=== PATIENT | male | born 1945 | race Caucasian/White ===

== ENCOUNTER 2017-03-22 09:28 | Emergency (ER) | payer MEDICARE ==
--- NOTE | 2017-03-22 09:45 | ERNOTE ---
Medical Problem HPI - Narrative Date of Service: 03/22/17 - General Chief Complaint: General Assessment Time Seen by Provider: 03/22/17 09:30 Source: patient, family, RN notes reviewed Exam Limitations: no limitations - Immun/Allergies/Home Medications Allergies/Adverse Reactions: Allergies Penicillins Allergy (Verified 03/22/17 09:46) Hives Home Medications: HOME MEDICATIONS Aspirin [Aspirin Chewable] 81 mg PO DAILY 07/28/14 [Last Taken Unknown] Enalapril Maleate [Vasotec] 2.5 mg PO DAILY 07/28/14 [Last Taken Unknown] Insulin Glargine,Hum.rec.anlog [Lantus] 100 unit SQ 07/28/14 [Last Taken Unknown ] Insulin NPH Human Isophane [Humulin N] 07/28/14 [Last Taken Unknown] Omeprazole [Prilosec] 40 mg PO DAILY 07/28/14 [Last Taken Unknown] Clopidogrel Bisulfate [Plavix] 75 mg PO DAILY 04/08/15 [Last Taken Unknown] Levothyroxine Sodium [Synthroid] 25 mcg PO DAILY 04/08/15 [Last Taken Unknown] Simvastatin [Zocor] 40 mg PO HS 04/08/15 [Last Taken Unknown] Multivitamin [One Daily Essential] 1 each PO DAILY 07/08/16 [Last Taken Unknown] Nitroglycerin [Nitrostat] 0.4 mg SL Q5MIN PRN 03/22/17 [Last Taken Unknown] - History of Present History Narrative: pt has been having gneralized malaise for the last couple of days. No real energy. Doesn't feel hungry. He apparently had BS of 300+ this am. Got 15 units of insulin then got hot and sweaty. Had a mild cough and sinus pressure. No recent sick contacts that he is aware of Timing: constant Severity: moderate Modifying Factors - (Improves): Present: other - none Review of Systems - Narrative Narrative: see HPI - Review of Systems Constitutional: Present: See HPI, fever, fatigue, malaise EYE: Present: other - baseline totally blind ENT: Present: See HPI, nose congestion, other - facial "fullness" and congestion "like a sinus infection". Absent: ear discharge, nose pain, sore throat, throat swelling Respiratory: Present: cough Cardiology: Present: other - mild discomfort with cough which is infrequent. No resting chest pain. Absent: palpitations, syncope Gastrointestinal/Abdominal: Present: eating less. Absent: nausea, vomiting, diarrhea, constipation, abdominal pain Genitourinary: Present: no symptoms reported Musculoskeletal: Present: muscle pain, other - generalized myalgias Skin: Present: no symptoms reported Neurological: Present: no symptoms reported Endocrine: Present: other - increased blood sugar Hematologic/Lymphatic: Present: no symptoms reported Psych: Present: no symptoms reported All Other Systems: All systems neg except as marked - Patient's Past Medical History Patient History - Medical: Diabetes Type 1, GERD, Hypothyroidism, Renal Disease Patient History - Cardiac/Respiratory: Coronary Heart Disease, Hypertension, Hyperlipidemia, Myocardial Infarction, Other - PVD Patient History - Cancer: No Hx of Cancer Patient History - Surgical Procedures: Coronary Bypass Surgery, Cardiac stent, Other Patient History - Other: None - Family History Mother Family History - Medical: Father Family History - Medical: - Social History Living Situations: home Abuse History: No History of abuse Psych History: No pertinent hx Alcohol Use: none Physical Exam - Physical Exam Narrative: Well developed well nourished gentleman sitting in wheelchair in no apparent distress General Appearance: Present: wd/wn, alert, no apparent distress Ears, Nose, Throat: Present: normal ENT inspection, normal pharynx. Absent: pharyngeal erythema, tonsillar swelling, dry mucous membranes Neck: Present: normal inspection, nontender, full range of motion Respiratory: Present: no respiratory distress, normal breath sounds, no accessory muscle use, chest nontender, lungs clear. Absent: chest tenderness, crackles, rales, rhonchi, wheezing Cardiovascular/Chest: Present: regular rate, rhythm, no murmur. Absent: tachycardia, bradycardia, gallop/S3, gallop/S4 Gastrointestinal/Abdominal: Present: normal bowel sounds, nontender, nondistended, soft Rectal Exam: Present: deferred Male Genitals Exam: Present: deferred Back Exam: Present: normal inspection, normal range of motion, no CVA tenderness , no vertebral tenderness Extremity Exam: Present: normal inspection, non-tender, normal range of motion, no edema. Absent: decreased range of motion, calf tenderness Neurological Exam: Present: alert, oriented, normal mood/affect, no motor/ sensory deficits, mangle tender cloth II-XII nml as tested Skin Exam: Present: normal color, warm/dry. Absent: skin rash Lymphatic Exam: Present: no adenopathy ED Progress - EKG EKG: NSR - first degree AVB with LA 254. borderline ST sdepression in I. Essentially unchanged from prior dated 07/08/16 EKG read: Interp. by me EKG Comments: Compared to prior 07/08/16 Plan - Plan Plan: Patient says that he is not able to urinate because he hasn't had 3-4 cups of coffee. He has no symptoms of urinary tract infection. i discussed with him the fact that either he will continue to worsen and new symptoms will develop. if this happens he should return. Otherwise he will start to get better and will likely be symptoms free in a couple of days. Will follow up with primray care doctor. Return for new or worrisome symptoms. Departure - Departure Clinical Impression: Malaise and fatigue Disposition: Home self-care Condition: Stable Instructions: Hyperglycemia, [id number] Additional Instructions: Return for new or worrisome symptoms. Follow up with primary care doctor. call for an appointment.
[2017-03-22 09:56] LABS: Hematocrit 34.8 % (42.0-52.0); Mean Cell Volume 90.4 fl (78-100); Mean Corpuscular Hemoglobin 31.2 pg (27-31); Mean Corpuscular Hgb Conc 34.5 g/dl (32-36); Mean Platelet Volume 11.6 fl (6.0-9.5); Neutrophil # 6.2 K/mm3 (1.3-6.0); Neutrophil % 86.3 % (42-75.0); Platelet Count 153 K/mm3 (150-450); Red Blood Count 3.85 M/mm3 (4.7-6.0); Red Cell Distribution Width 13.9 % (11.5-14.0); White Blood Count 7.2 K/mm3 (4.0-10.5)
[2017-03-22 10:13] LABS: Albumin * 3.2 gm/dl (3.4-5.0); BUN/Creatinine Ratio 18.1 (9.0-21.6); Bilirubin, Total 0.7 mg/dL (0.0-1.1); Ca. Corrected For Albumin 9.1 mg/dL (8.4-10.2); Calcium * 8.8 mg/dL (7.9-10.9); Carbon Dioxide 27.6 mmol/L (24-32.6); Potassium 4.6 mmol/L (3.4-4.6); Total Protein 6.6 gm/dL (6.2-8.2)
[2017-03-22 10:14] LABS: Troponin I 0.026 ng/ml (0.00-0.10)
[2017-03-22 11:24] VITALS: BP 124/51
== END 2017-03-22 11:25 | disposition home or self-care (01) ==
LOC: ER 09:28
DX: R53.81 Other malaise (principal); R53.83 Other fatigue; E03.9 Hypothyroidism, unspecified; K21.9 Gastro-esophageal reflux disease without esophagitis; I50.9 Heart failure, unspecified; I10 Essential (primary) hypertension; E78.5 Hyperlipidemia, unspecified

== ENCOUNTER 2017-04-16 19:01 | Emergency (ER) | payer MEDICARE ==
--- NOTE | 2017-04-16 20:03 | ERNOTE ---
<LindseyToym - Last Filed: 04/16/17 19:52> Neuro HPI ER Record Date of Service: 04/16/17 Presenting Symptoms: other - trouble with speech Time Seen by Provider: 04/16/17 19:52 Source: patient, family Exam Limitations: no limitations Immunizations: IMMUNIZATION HX Immunizations Up to Date Yes: Unknown History of Influenza Vaccine No Hx Pneumococcal Vaccination No Allergies/Adverse Reactions: Allergies Allergy/AdvReac Type Severity Reaction Status Date / Time Penicillins Allergy Hives Verified 03/22/17 09:46 Home Medications: HOME MEDICATIONS Enalapril Maleate [Vasotec] 2.5 mg PO DAILY 07/28/14 [Last Taken Unknown] Insulin Glargine,Hum.rec.anlog [Lantus] 100 unit SQ 07/28/14 [Last Taken Unknown ] Insulin NPH Human Isophane [Humulin N] 15 units SC DAILY 07/28/14 [Last Taken Unknown] Omeprazole [Prilosec] 20 mg PO DAILY 07/28/14 [Last Taken Unknown] Clopidogrel Bisulfate [Plavix] 75 mg PO DAILY 04/08/15 [Last Taken Unknown] Levothyroxine Sodium [Synthroid] 25 mcg PO DAILY 04/08/15 [Last Taken Unknown] Simvastatin [Zocor] 40 mg PO HS 04/08/15 [Last Taken Unknown] Multivitamin [One Daily Essential] 1 each PO DAILY 07/08/16 [Last Taken Unknown] Nitroglycerin [Nitrostat] 0.4 mg SL Q5MIN PRN 03/22/17 [Last Taken Unknown] Ferrous Sulfate [Iron] 325 mg PO DAILY 04/16/17 [Last Taken Unknown] Insulin Regular, Human [Humulin R] unit SC TIDWM 04/16/17 [Last Taken Unknown] [place]-3 Fatty Acids/Fish Oil [Fish Oil 1,000 mg Capsule] 2 each PO 04/16/17 [ Last Taken Unknown] - History of Present Illness Narrative: Patient presents via EMS. He had low BS. Was diaphoretic and having trouble speaking. confirmed low BS and gave oral glucose however his Sx persisted. EMS called. Now he relates all his Sx have resolved and and he thinks he is back to normal. No fevers. Sinus infection 1 mo ago, no recent infections. No CP or SOB. no abdominal pain. Onset: other - Sx resovled - Character of Deficits Additional Deficits: Present: other - chronic vision changes. Associated Symptoms: Reports: altered mental status. Denies: fever/chills, chest pain Prior Treament: Reports: other - has had these Sx with low BS in the past Review of Systems - Review of Systems Constitutional: Absent: fever EYE: Present: other - chronic vision changes ENT: Absent: sore throat Respiratory: Absent: shortness of breath Cardiology: Absent: chest pain Gastrointestinal/Abdominal: Absent: abdominal pain Genitourinary: Absent: dysuria Neurological: Present: See HPI - Patient's Past Medical History Patient History - Medical: Diabetes Type 1, GERD, Hypothyroidism, Renal Disease Patient History - Cardiac/Respiratory: Coronary Heart Disease, Hypertension, Hyperlipidemia, Other Patient History - Cancer: No Hx of Cancer Patient History - Surgical Procedures: Coronary Bypass Surgery, Cardiac stent, Other Patient History - Other: None - Family History Mother Family History - Medical: Father Family History - Medical: - Social History Living Situations: spouse Abuse History: No History of abuse Psych History: No pertinent hx Smoking Status: Never smoker Alcohol Use: none Drug Use: none - Immunizations Immunizations Up to Date: Yes - Unknown Hx Pneumococcal Vaccination: No History of Influenza Vaccine: No Physical Exam - Physical Exam General Appearance: Present: alert, no apparent distress Head Exam: Present: normal inspection Eye Exam: Other: bilateral - Known visual impairment Ears, Nose, Throat: Absent: nasal congestion, pharyngeal erythema, dry mucous membranes Neck: Present: normal inspection Respiratory: Present: no respiratory distress, normal breath sounds, no accessory muscle use, lungs clear Cardiovascular/Chest: Present: regular rate, rhythm Gastrointestinal/Abdominal: Present: normal bowel sounds, nontender, soft Back Exam: Absent: CVA tenderness (R), CVA tenderness (L) Extremity Exam: Present: no edema Neurological Exam: Present: alert, normal mood/affect, no motor/sensory deficits , other - chronic vision changes. No pronator drift. No clear acute CN deficits. No extremity focal motor or sensory deficits. No clear evidence of acute stroke. Skin Exam: Present: normal color, warm/dry ED Progress - Vital Signs Patient's Vital Signs:: I have reviewed the patient's vital signs. Vital Signs: Vital Signs 04/16/17 04/16/17 19:02 19:37 Temperature 36.5 C Pulse Rate 69 67 Respiratory 14 12 Rate Blood Pressure 227/100 234/87 O2 Sat by Pulse 100 100 Oximetry - Progress/Reassessment Chief Complaint: Altered Mental Status - Transfer of Care Physician Sign Out: Tomy Portillo Receiving Physician: Jr Guevara Pending Results: Labs Additional Notes: i saw the patient just prior to the end of my shift. Labs/UA, EKG ordered. D/ W Dr Guevara and patient signed off. No evidence at this time of acute stroke. Clinically most likelysecondary to low BS that was noted at home. Departure Clinical Impression: Hypoglycemia Mental status alteration Qualifiers: Altered mental status type: disorientation Qualified Code(s): R41.0 - Disorientation, unspecified - Departure Disposition: Home Follow Up Needed Condition: Good Instructions: Confusion, Hypoglycemia, [id number] Additional Instructions: See your regular doctor within the next 1-2 weeks for further testing. Return to ER if symptoms return <Jr Guevara - Last Filed: 04/16/17 23:36> Neuro HPI ER Record Immunizations: IMMUNIZATION HX Immunizations Up to Date Yes: Unknown History of Influenza Vaccine No Hx Pneumococcal Vaccination No ED Progress - Results and Orders Patient's Lab Results:: I have reviewed the patient's lab results. Results and Orders: Laboratory Tests 04/16/17 04/16/17 04/16/17 20:07 20:07 20:19 WBC 4.8 Hgb 11.7 L Hct 34.3 L Plt Count 138 L Sodium 132 Potassium 4.5 BUN 26 H Creatinine 1.73 H Random Glucose 146 H Urine Color Yellow Urine Appearance Clear Urine pH 6.5 Ur Specific [place] <=1.005 Urine Protein Negative Urine Glucose (UA) Negative Urine Ketones Negative Urine Blood Negative Urine Nitrate Negative Urine Bilirubin Negative Urine Urobilinogen Normal Ur Leukocyte Esterase Negative Urine RBC 0-5 Urine WBC 0-5 Ur Epithelial Cells 0-5 Urine Bacteria 1+ H Hyaline Casts 0-5 H Urine Culture Comments No culture indicated - Vital Signs Vital Signs: Vital Signs 04/16/17 04/16/17 04/16/17 19:02 19:37 19:55 Temperature 36.5 C Pulse Rate 69 67 74 Respiratory 14 12 Rate Blood Pressure 227/100 234/87 O2 Sat by Pulse 100 100 Oximetry 04/16/17 04/16/1717 20:22 20:47 21:22 Temperature Pulse Rate 67 65 60 Respiratory 18 16 18 Rate Blood Pressure 232/94 224/93 216/84 O2 Sat by Pulse 99 97 98 Oximetry 04/16/17 21:47 Temperature Pulse Rate 70 Respiratory 13 Rate Blood Pressure 217/83 O2 Sat by Pulse 99 Oximetry - EKG EKG: nonspecific ST T wave changes - with 1st degree AV block - Progress/Reassessment Progress Note-Subjective: 04/16/17 21:50 Pt feels better but BP appears high systolic. Will get manual BP 04/16/17 23:00 BP in normal range when done manually. Discussed hypoglycemia vs. TIA. does not believe it could be hypoglycemia. I encouraged them to see his PCP in follow up and return to ED if symptoms return.
--- OUTSIDE RECORDS SUMMARY | 2017-04-16 20:04 | XMS REPORT | Summary of Care ---
:1945 Author Organization [facility] Address [address] [place] [address] Care Team Providers Name Role Phone Mell Staples Primary Care Physician Encounter Date(s): 04/02/17 - 04/02/17 [facility], [address] [place], [place] [address] Discharge Diagnosis: Chronic kidney disease (CKD), stage III (moderate) Discharge Diagnosis: Benign hypertension with CKD (chronic kidney disease) stage III Discharge Diagnosis: Anemia Discharge Diagnosis: Peripheral edema Discharge Diagnosis: Microalbuminuria Discharge Disposition: 01 Discharged to Home or Self Care Attending Physician: YOLIE Oliver Referring Physician: YOLIE Oliver Vital Signs Most recent to oldest [Reference Range]: 1 2 Temperature Temporal Artery [36.0-38.0 DegC] 36.3 DegC (04/02/17 10:01 AM) Peripheral Pulse Rate [60-100 bpm] 68 bpm (04/02/17 10:01 AM) Blood Pressure [90-130/60-90 mmHg] 130/70mmHg 142/68mmHg (04/02/17 10:37 AM) *HI* (04/02/17 10:01 AM) Mean Arterial Pressure, Cuff 90 mmHg 93 mmHg (04/02/17 10:37 AM) (04/02/17 10:01 AM) Most recent to oldest [Reference Range]: 1 2 Height/Length Measured 167 cm (04/02/17 10:01 AM) Weight Dosing 64.4 kg (04/02/17 10:01 AM) Weight Measured 64.4 kg (04/02/17 10:01 AM) BSA Measured 1.72 m2 (04/02/17 10:01 AM) Body Mass Index Measured 23.09 kg/m2 (04/02/17 10:01 AM) Problem List Condition Effective Dates Status Health Status Informant Anemia(Confirmed) Active CAD - Coronary artery Active disease(Confirmed) Chronic kidney disease stage Active 3(Confirmed) Herniated Disc L1(Confirmed)1 Active GERD - Gastro-esophageal reflux Active disease(Confirmed) HTN - Hypertension(Confirmed) Active Hyperkalemia(Confirmed) Active Hyperlipidemia(Confirmed) Active Hyponatremia(Confirmed) Active ITP(Confirmed) Active Pancytopenia(Confirmed) 01/31/12 Active Peripheral vascular disease(Confirmed) Active DM I [Diabetes mellitus type I] 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 [id number] by retinopathy Allergies, Adverse Reactions, Alerts Substance Reaction Severity Status penicillins Active Medications aspirin 81 mg oral tablet 1 tab(s), Oral, Daily, 0 Refill(s) Start Date: 02/04/14 Status: Orderedcefdinir 300 mg oral capsule 2 cap(s), Oral, Daily, TAKE TWO CAPSULES BY MOUTH EVERY DAY FOR 10 DAYS, X 10 days, Start Date: 03/29/17 8:00:00 CDT Special Instructions: TAKE TWO CAPSULES BY MOUTH EVERY DAY FOR 10 DAYS Start Date: 03/29/17 Stop Date: 04/07/17 Status: OrderedCialis 20 mg oral tablet 1 tab(s), Oral, Per Package Label, # 3 tab(s), 0 Refill(s), Start Date: 14:02:00 [employer], samples given to patient (Rx), [id number], 06/23/17 Start Date: 12/02/15 Stop Date: 02/08/16 Status: Completeddoxycycline 100 mg injection 100 mg, Oral, BID, # 10 cap(s), 0 Refill(s), Start Date: 10/02/16 10:11:00 [employer], Pharmacy: [facility] [place], [place] Start Date: 10/02/16 Stop Date: 01/31/17 Status: Completedenalapril 2.5 mg oral tablet 1 tab(s), Oral, Daily, 0 Refill(s) Start Date: 02/04/14 Status: Orderedferrous sulfate 325 mg (65 mg elemental iron) oral delayed release tablet 1 tab(s), Oral, 2x/Wk, take 1 tablet (325MG) by oral 2 times weekly, 0 Refill(s) , Start Date: 02/04/14 13:22:00 CDT Special Instructions: take 1 tablet (325MG) by oral 2 times weekly Start Date: 02/04/14 Status: OrderedFish Oil 1000 mg oral capsule 2 cap(s), Oral, 0 Refill(s), Start Date: 02/04/14 13:18:00 CDT Start Date: 02/04/14 Status: OrderedHumuLIN N 100 units/mL subcutaneous suspension See Instructions, inject by subcutaneous route as per insulin sliding scale protocol, 0 Refill(s) Special Instructions: inject by subcutaneous route as per insulin sliding scale protocol Start Date: 02/04/14 Status: OrderedHumuLIN R 100 units/mL injectable solution See Instructions, inject by subcutaneous route as per insulin sliding scale protocol, 0 Refill(s) Special Instructions: inject by subcutaneous route as per insulin sliding scale protocol Start Date: 02/04/14 Status: OrderedLantus 100 units/mL subcutaneous solution See Instructions, as directed per sliding scale, 0 Refill(s), Start Date: 13:05:00 CDT Special Instructions: as directed per sliding scale Start Date: 02/03/15 Status: Orderedmultivitamin Daily, take 1 capsule by oral route every day, 0 Refill(s) Special Instructions: take 1 capsule by oral route every day Start Date: 02/04/14 Status: Orderednitroglycerin 0.4 mg sublingual tablet 1 tab(s), SL, q5min, PRN for chest pain, 0 Refill(s) Start Date: 02/04/14 Stop Date: 12/02/15 Status: DiscontinuedNitrostat 0.4 mg sublingual tablet 1 tab(s), SL, q5min, PRN for chest pain, # 100 tab(s), 0 Refill(s), Start Date: 10/02/16 9:35:00 [employer] ASS[employer] Start Date: 10/02/16 Status: Orderedomeprazole See Instructions, Prilosec 20 mg Cap take 1 capsule (20MG) by ORAL route every day before a meal, 0 Refill(s) Special Instructions: Prilosec 20 mg Cap take 1 capsule (20MG) by ORAL route every day before a meal Start Date: 02/04/14 Status: OrderedPlavix 75 mg oral tablet See Instructions, take 1/2 tablet (37.5MG) by oral route every day, 0 Refill(s) Special Instructions: take 1/2 tablet (37.5MG) by oral route every day Start Date: 02/04/14 Status: Orderedsimvastatin 40 mg oral tablet See Instructions, take 1/2 tablet (40MG) by ORAL route every bedtime in the evening, 0 Refill(s) Special Instructions: take 1/2 tablet (40MG) by ORAL route every bedtime in the evening Start Date: 02/04/14 Status: OrderedSynthroid 25 mcg (0.025 mg) oral tablet 1 tab(s), Oral, Daily, # 30 tab(s), 0 Refill(s), Start Date: 07/15/15 11:51:00 CDT Start Date: 07/15/15 Status: Orderedtadalafil 20 mg oral tablet 1 tab(s), Oral, Daily, # 9 tab(s), 11 Refill(s), Start Date: 02/08/17 15:53:54 CDT, Pharmacy: [place], [place] Start Date: 02/08/17 Stop Date: 02/15/17 Status: Discontinuedtadalafil 20 mg oral tablet 1 tab(s), Oral, Daily, # 9 tab(s), 11 Refill(s), Start Date: 02/15/17 15:25:48 CDT, Pharmacy: [id number] Start Date: 02/15/17 Status: Orderedtadalafil 20 mg oral tablet 1 tab(s), Oral, Daily, # 9 tab(s), 11 Refill(s), Start Date: 12/30/15 9:32:00 CDT, Pharmacy: [place], [place] Start Date: 12/30/15 Stop Date: 02/08/17 Status: CompletedViagra 100 mg oral tablet 1 tab(s), Oral, As Indicated, PRN for erectile dysfunction, # 6 tab(s), 11 Refill(s), Start Date: 08/12/15 13:47:00 [employer] ASS[employer], [facility] [place] Start Date: 08/12/15 Stop Date: 12/02/15 Status: DiscontinuedViagra 50 mg oral tablet 1 tab(s), Oral, Daily, PRN as needed for erectile dysfunction, # 8 tab(s), 0 Refill(s), Start Date: 07/15/15 12:08:00 CDT, samples given to patient (Rx), [id number], 04/21/18 Start Date: 07/15/15 Stop Date: 12/02/15 Status: DiscontinuedZetia 10 mg oral tablet 1 tab(s), Oral, Daily, 0 Refill(s) Start Date: 02/04/14 Stop Date: 02/03/15 Status: Completed Results No data available for this section Immunizations No data available for this section Procedures Procedure Date Related Diagnosis Body Site CABG - 3V1 03/2003 Post PTCA with stents Right knee surgery - open repair Right LE JET PILOT with STENT2 1CABG [id number] LE JET PILOT with STENT Social History No data available for this section Assessment and Plan No data available for this section
--- OUTSIDE RECORDS SUMMARY | 2017-04-16 20:04 | XMS REPORT | Summary of Care ---
:1945 Author Organization [facility] Care Team Providers Name Role Phone Mell Staples Primary Care Physician Encounter Date(s): 01/31/17 - 01/31/17 [facility] [address] [place], [place] [address] Discharge Disposition: Discharged to Home or Self Care Attending Physician: Gregg Ferraro MD Admitting Physician: Gregg Ferraro MD Vital Signs No data available for this section Problem List Condition Effective Dates Status Health [...] I] 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 [id number] by retinopathy Allergies, Adverse Reactions, Alerts Substance Reaction Severity Status penicillins Active Medications aspirin 81 mg oral tablet 1 tab(s), Oral, Daily, 0 Refill(s) Start Date: 02/04/14 Status: OrderedCialis 20 mg oral tablet 1 tab(s), Oral, Per Package Label, # 3 tab(s), 0 Refill(s), Start Date: 14:02:00 [employer], samples given to patient (Rx), [id number], 06/23/17 Start Date: 12/02/15 Stop Date: 02/08/16 Status: Completeddoxycycline 100 mg injection 100 mg, Oral, BID, # 10 cap(s), 0 Refill(s), Start Date: 10/02/16 10:11:00 [employer], [facility] [place] Start Date: 10/02/16 Stop Date: 01/31/17 [...] tab(s), 0 Refill(s), Start Date: 10/02/16 9:35:00 [employer] Start Date: 10/02/16 Status: Orderedomeprazole See Instructions, [...] Refill(s), Start Date: 12/30/15 9:32:00 CDT, Pharmacy: [place], [place] Start Date: 12/30/15 Status: OrderedViagra 100 mg oral tablet 1 tab(s), Oral, As Indicated, PRN for erectile dysfunction, # 6 tab(s), 11 Refill(s), Start Date: 08/12/15 13:47:00 [employer], Pharmacy: [place], [place] Start Date: 08/12/15 Stop Date: 12/02/15 Status: DiscontinuedViagra 50 mg oral tablet 1 tab(s), Oral, Daily, PRN as needed for erectile dysfunction, # 8 tab(s), 0 Refill(s), Start Date: 07/15/15 12:08:00 CDT, samples given to patient (Rx), [id number], 04/21/18 Start Date: 07/15/15 Stop Date: 12/02/15 Status: DiscontinuedZetia 10 mg oral tablet 1 tab(s), Oral, Daily, 0 Refill(s) Start Date: 02/04/14 Stop Date: 02/03/15 Status: Completed Results Patient Viewable Results Most recent to oldest [Reference Range]: 1 WBC [4.8-10.8 thou/mm3] 4.4 thou/mm3 *LOW* (01/31/17 9:41 AM) RBC [4.60-6.00 Mil/mm3] 3.90 Mil/mm3 *LOW* (01/31/17 9:41 AM) Hgb [14.0-18.0 g/dL] 12.4 g/dL *LOW* (01/31/17 9:41 AM) Hct [42.0-52.0 %] 35.2 % *LOW* (01/31/17 9:41 AM) MCV [80.0-94.0 fL] 90.3 fL (01/31/17 9:41 AM) MCH [25.0-38.0 pg/cell] 31.8 pg/cell (01/31/17 9:41 AM) MCHC [31.0-37.0 g/dL] 35.2 g/dL (01/31/17 9:41 AM) RDW [1.0-48.0 fL] 46.9 fL (01/31/17 9:41 AM) Platelet [130-400 thou/mm3] 149 thou/mm3 (01/31/17 9:41 AM) Neutrophils % Auto [50.0-75.0 %] 68.3 % (01/31/17 9:41 AM) Immature Granulocyte Auto [0.1-2.0 %] 0.2 % (01/31/17 9:41 AM) Lymphocytes % Auto [15.0-41.0 %] 19.4 % (01/31/17 9:41 AM) Monocytes % Auto [2.0-10.0 %] 8.7 % (01/31/17 9:41 AM) Eosinophils % Auto [0.0-6.0 %] 3.2 % (01/31/17 9:41 AM) Basophil % Auto [0.0-1.0 %] 0.2 % (01/31/17 9:41 AM) Neutrophils Absolute [1.5-5.9 thou/mm3] 3.0 thou/mm3 (01/31/17 9:41 AM) Immature Gran Absolute [0.01-0.03 thou/mm3] 0.01 thou/mm3 (01/31/17 9:41 AM) Lymphocytes Absolute [1.5-4.0 thou/mm3] 0.8 thou/mm3 *LOW* (01/31/17 9:41 AM) Monocytes Absolute [0.0-0.9 thou/mm3] 0.4 thou/mm3 (01/31/17 9:41 AM) Eosinophil Absolute [0.0-0.7 thou/mm3] 0.1 thou/mm3 (01/31/17 9:41 AM) Basophil Absolute [0.0-0.2 thou/mm3] 0.0 thou/mm3 (01/31/17 9:41 AM) Immunizations No data available for this section Procedures Procedure Date Related Diagnosis Body Site CABG - 3V1 03/2003 Post PTCA with stents Right knee surgery - open repair Right LE 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
--- OUTSIDE RECORDS SUMMARY | 2017-04-16 20:05 | XMS REPORT | Summary of Care ---
:1945 Author Organization [facility] Address [address] [place] [address] Care Team Providers Name Role Phone Mell Staples Primary Care Physician Encounter Date(s): 01/31/17 - 01/31/17 [facility] [address] [place], [place] [address] Discharge Diagnosis: ITP Discharge Diagnosis: Pancytopenia Discharge Disposition: 01 Discharged to Home or Self Care Attending Physician: Gregg Ferraro MD Referring Physician: THAIS Haas Vital Signs Most recent to oldest [Reference Range]: 1 Temperature Temporal Artery [36.0-38.0 DegC] 36.3 DegC (01/31/17 10:16 AM) Peripheral Pulse Rate [60-100 bpm] 71 bpm (01/31/17 10:16 AM) Respiratory Rate [12-20 br/min] 18 br/min (01/31/17 10:16 AM) SpO2 [90-100 %] 98 % (01/31/17 10:16 AM) Blood Pressure [90-130/60-90 mmHg] 172/78mmHg *HI* (01/31/17 10:16 AM) Most recent to oldest [Reference Range]: 1 Height/Length Measured 167.74 cm (01/31/17 10:16 AM) Height/Length Estimated 167.74 cm (01/31/17 10:16 AM) Weight Estimated 64.9 kg (01/31/17 10:16 AM) Weight Dosing 64.9 kg (01/31/17 10:16 AM) Weight Measured 64.9 kg (01/31/17 10:16 AM) BSA Measured 1.74 m2 (01/31/17 10:16 AM) BSA Estimated 1.74 m2 (01/31/17 10:16 AM) Body Mass Index Measured 23.07 kg/m2 (01/31/17 10:16 AM) Body Mass Index Estimated 23.07 kg/m2 (01/31/17 10:16 AM) Problem List Condition Effective Dates Status [...] I] 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 [id number] by retinopathy Allergies, Adverse Reactions, Alerts Substance Reaction Severity Status penicillins Active Medications aspirin 81 mg oral tablet 1 tab(s), Oral, Daily, 0 Refill(s) Start Date: 02/04/14 Status: OrderedCialis 20 mg oral tablet 1 tab(s), Oral, Per Package Label, # 3 tab(s), 0 Refill(s), Start Date: 14:02:00 CUT OFF SAWYER LOG, samples given to patient (Rx), [id number], 06/23/17 Start Date: 12/02/15 Stop Date: 02/08/16 Status: Completeddoxycycline 100 mg injection 100 mg, Oral, BID, # 10 cap(s), 0 Refill(s), Start Date: 10/02/16 10:11:00 CUT OFF SAWYER LOG, Pharmacy: [facility], [place] Start Date: 10/02/16 Stop Date: 01/31/17 [...] tab(s), 0 Refill(s), Start Date: 10/02/16 9:35:00 CUT OFF SAWYER LOG Start Date: 10/02/16 Status: Orderedomeprazole See Instructions, [...] Refill(s), Start Date: 12/30/15 9:32:00 CDT, Pharmacy: [place], [place] Start Date: 12/30/15 Status: OrderedViagra 100 mg oral tablet 1 tab(s), Oral, As Indicated, PRN for erectile dysfunction, # 6 tab(s), 11 Refill(s), Start Date: 08/12/15 13:47:00 CUT OFF SAWYER LOG, Pharmacy: [place], [place] Start Date: 08/12/15 Stop Date: 12/02/15 Status: DiscontinuedViagra 50 mg oral tablet 1 tab(s), Oral, Daily, PRN as needed for erectile dysfunction, # 8 tab(s), 0 Refill(s), Start Date: 07/15/15 12:08:00 CDT, samples given to patient (Rx), [id number], 04/21/18 Start Date: 07/15/15 Stop Date: 12/02/15 [...] knee surgery - open repair 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
[2017-04-16 20:18] LABS: Hematocrit 34.3 % (42.0-52.0); Hemoglobin 11.7 gm/dL (13.5-18.0); Mean Cell Volume 90.3 fl (78-100); Mean Corpuscular Hemoglobin 30.8 pg (27-31); Mean Corpuscular Hgb Conc 34.1 g/dl (32-36); Mean Platelet Volume 11.7 fl (6.0-9.5); Neutrophil # 3.6 K/mm3 (1.3-6.0); Neutrophil % 73.8 % (42-75.0); Platelet Count 138 K/mm3 (150-450); Red Cell Distribution Width 14.2 % (11.5-14.0); White Blood Count 4.8 K/mm3 (4.0-10.5)
[2017-04-16 20:36] LABS: Albumin * 3.5 gm/dl (3.4-5.0); Anion Gap 12.9 mmol/L (6.8-13.8); Bilirubin, Total 0.3 mg/dL (0.0-1.1); Ca. Corrected For Albumin 8.8 mg/dL (8.4-10.2); Calcium * 8.7 mg/dL (7.9-10.9); Carbon Dioxide 26.6 mmol/L (24-32.6); Potassium 4.5 mmol/L (3.4-4.6); Total Protein 6.9 gm/dL (6.2-8.2); Troponin I 0.027 ng/ml (0.00-0.10)
[2017-04-16 20:51] LABS: Urine Bilirubin Negative (NEGATIVE); Urine Blood Negative /ul (NEGATIVE); Urine Ketone Negative (NEGATIVE); Urine Nitrite Negative (NEGATIVE); Urine Protein Negative (NEGATIVE); Urine Specific Gravity <=1.005 SP.GR. (1.005-1.030); Urine Urobilinogen Normal (NORMAL); Urine pH 6.5 pH (5.0-7.0)
[2017-04-16 21:05] LABS: Urine Appearance Clear; Urine Color Yellow
[2017-04-16 21:06] LABS: Urine Bacteria 1+; Urine Hyaline Cast 0-5 /LPF; Urine RBC 0-5 /hpf (0-5); Urine WBC 0-5 /hpf (0-5)
[2017-04-16 23:29] VITALS: BP 164/86
== END 2017-04-16 23:28 | disposition home or self-care (01) ==
LOC: ER 19:01
DX: E16.2 Hypoglycemia, unspecified (principal); R41.0 Disorientation, unspecified

== ENCOUNTER 2017-10-18 10:40 | Emergency (ER) | payer MEDICARE ==
[2017-10-18] MEDS ORDERED: hydrALAZINE HCL 20 MG/ML VIAL IV ONE (11:45)
--- NOTE | 2017-10-18 11:46 | ERNOTE ---
Headache ER HPI - Narrative Date of Service: 10/18/17 - General Presenting Symptoms: headache Time Seen by Provider: 10/18/17 11:24 Source: patient, family, RN notes reviewed, old records Exam Limitations: no limitations - Immun/Allergies/Home Medications Immunizations: IMMUNIZATION HX Immunizations Up to Date Yes History of Influenza Vaccine No Hx Pneumococcal Vaccination No Allergies/Adverse Reactions: Allergies Penicillins Allergy (Verified 03/22/17 09:46) Hives ibuprofen Adverse Reaction (Verified 10/18/17 11:16) Home Medications: HOME MEDICATIONS Enalapril Maleate [Vasotec] 2.5 mg PO DAILY 07/28/14 [Last Taken Unknown] Insulin Glargine,Hum.rec.anlog [Lantus] 100 unit SQ 07/28/14 [Last Taken Unknown ] Insulin NPH Human Isophane [Humulin N] 15 units SC DAILY 07/28/14 [Last Taken Unknown] Omeprazole [Prilosec] 20 mg PO DAILY 07/28/14 [Last Taken Unknown] Clopidogrel Bisulfate [Plavix] 75 mg PO DAILY 04/08/15 [Last Taken Unknown] Levothyroxine Sodium [Synthroid] 25 mcg PO DAILY 04/08/15 [Last Taken Unknown] Simvastatin [Zocor] 40 mg PO HS 04/08/15 [Last Taken Unknown] Multivitamin [One Daily Essential] 1 each PO DAILY 07/08/16 [Last Taken Unknown] Nitroglycerin [Nitrostat] 0.4 mg SL Q5MIN PRN 03/22/17 [Last Taken Unknown] Ferrous Sulfate [Iron] 325 mg PO DAILY 04/16/17 [Last Taken Unknown] Insulin Regular, Human [Humulin R] unit SC TIDWM 04/16/17 [Last Taken Unknown] [place]-3 Fatty Acids/Fish Oil [Fish Oil 1,000 mg Capsule] 2 each PO 04/16/17 [ Last Taken Unknown] - History of Present Illness Narrative: Jeromy is a 72 year old male who presents to the ED with his for an elevated blood pressure and headache. This began 2 or 3 weeks ago. He has been seen in nephrology and by his PCP since then. His blood pressure was not quite as high at those visits as it is today. He takes Enalapril 2.5 mg daily due to his DM and renal insufficiency, but has never had to take anything for his blood pressure. He took ibuprofen for his headache earlier today without improvement. He does not routinely have headaches unless he has a sinus infection. He denies any sinus drainage or congestion. Timing of Headache: gradual, cannot pinpoint onset, intermittent Quality: Present: throbbing Headache frequency: Absent: frequent headaches, chronic headaches Exacerbated by:: Denies: light, noise, movement, position Prior Treament: Reports: recently seen, treated by physician. Denies: similar symptoms before Review of Systems - Review of Systems Constitutional: Absent: recent illness, fever, chills, fatigue, malaise EYE: Absent: eye pain, eye discharge ENT: Absent: ear pain, nose congestion, nasal drainage, sore throat Respiratory: Absent: shortness of breath, cough Cardiology: Absent: chest pain, palpitations, edema Gastrointestinal/Abdominal: Absent: nausea, vomiting Genitourinary: Absent: dysuria, decreased urinary output Musculoskeletal: Absent: muscle pain, neck pain Skin: Absent: rash, lesions, lumps Neurological: Present: headache, pre-existing deficit - Blind. Absent: dizziness/light-headedness, weakness, numbness, tingling Endocrine: Present: no symptoms reported Hematologic/Lymphatic: Present: no symptoms reported Psych: Absent: anxiety, depressed - Patient's Past Medical History Patient History - Medical: Diabetes Type 1, GERD, Hypothyroidism, Renal Disease Patient History - Cardiac/Respiratory: Coronary Heart Disease, Hypertension, Hyperlipidemia, Other Patient History - Cancer: No Hx of Cancer Patient History - Surgical Procedures: Coronary Bypass Surgery, Cardiac stent, Other Patient History - Other: None - Family History Mother Family History - Medical: Father Family History - Medical: - Social History Living Situations: spouse Abuse History: No History of abuse Psych History: No pertinent hx Smoking Status: Never smoker Alcohol Use: none Drug Use: none - Immunizations Immunizations Up to Date: Yes Hx Pneumococcal Vaccination: No History of Influenza Vaccine: No Physical Exam - Physical Exam General Appearance: Present: wd/wn, alert, no apparent distress Head Exam: Present: normal inspection, no evidence of injury Eye Exam: Abnormal pupil: bilateral - nonreactive, blind Ears, Nose, Throat: Present: normal ENT inspection, normal pharynx Neck: Present: normal inspection, nontender, supple, full range of motion Respiratory: Present: no respiratory distress, normal breath sounds, no accessory muscle use, lungs clear Cardiovascular/Chest: Present: regular rate, rhythm, no murmur, normal peripheral pulses Extremity Exam: Present: normal inspection, no edema Neurological Exam: Present: alert, oriented, normal mood/affect, no motor/ sensory deficits Skin Exam: Present: normal color, warm/dry ED Progress - Results and Orders Patient's Lab Results:: I have reviewed the patient's lab results. - Vital Signs Patient's Vital Signs:: I have reviewed the patient's vital signs. Vital Signs: Vital Signs 10/18/17 10:50 Temperature 36.3 C L Pulse Rate 71 Respiratory 16 Rate Blood Pressure 170/83 O2 Sat by Pulse 99 Oximetry - EKG EKG: NSR, nonspecific ST T wave changes EKG read: Reviewed by me - X-Ray X-Ray #1 X-Ray: chest Interpretation: Reviewed by me X-ray Comments: No acute cardiopulmonary findings - CT/Ultrasound CT/Ultrasound Narrative: CT head shows no acute intracranial findings - Progress/Reassessment Chief Complaint: Headache Progress:: Improved Plan - Plan Plan: BP 258/110 at its highest, dropped to 99/40 after hydralazine. Patient verbalizes relief of headache although he never did appear to be in any discomfort. Work-up is without any acute findings. Patient had initially stated that his blood pressure had never been elevated like this before, but now says it's been 2 years since his blood pressure was this high. He reports that no cause was determined at that time either. Follow up scheduled for the patient with his PCP on 10/21. No medications were added for his blood pressure due to the severe drop that occurred here with the hydralazine, and the lack of other symptoms or findings with the elevation other than his headache. Spent a great deal of time discussing this with the patient and his . They are in agreement with the plan. Departure Clinical Impression: Hypertensive emergency without congestive heart failure - Departure Disposition: Home Follow Up Needed Condition: Stable Instructions: Hypertension, [id number] Additional Instructions: Continue your routine medications Do not take ibuprofen Return to ER for severe headache, chest pain, trouble breathing or other concerning symptoms, otherwise follow up with Mell on Saturday as scheduled Referrals: Mell Staples PA [Primary Care Provider] - 10/21/17 10:30 am
[2017-10-18] MEDS ORDERED: hydrALAZINE HCL 20 MG/ML VIAL ONE (11:51)
[2017-10-18 12:01] LABS: Hematocrit 35.2 % (42.0-52.0); Hemoglobin 12.2 gm/dL (13.5-18.0); Mean Cell Volume 91.2 fl (78-100); Mean Corpuscular Hemoglobin 31.6 pg (27-31); Mean Corpuscular Hgb Conc 34.7 g/dl (32-36); Mean Platelet Volume 11.2 fl (6.0-9.5); Neutrophil # 2.1 K/mm3 (1.3-6.0); Neutrophil % 59.3 % (42-75.0); Platelet Count 145 K/mm3 (150-450); Red Blood Count 3.86 M/mm3 (4.7-6.0); Red Cell Distribution Width 13.7 % (11.5-14.0); White Blood Count 3.5 K/mm3 (4.0-10.5)
[2017-10-18 12:13] LABS: Prothrombin Time (Patient) 11.7 Seconds (9.0-11.0)
[2017-10-18 12:21] LABS: INR 1.17 INR (0.90-1.10); Partial Thrombolplastin Time 27.3 Seconds (24-32)
[2017-10-18 12:38] LABS: ALT 20 U/L (19-67); AST 20 U/L (0-48); Albumin * 3.3 gm/dl (3.4-5.0); Alkaline Phosphatase * 98 U/L (50-170); Anion Gap 7.6 mmol/L (6.8-13.8); BUN/Creatinine Ratio 17.9 (9.0-21.6); Bilirubin, Total 0.4 mg/dL (0.0-1.1); Blood Urea Nitrogen 28 mg/dL (6-23); Ca. Corrected For Albumin 9.1 mg/dL (8.4-10.2); Calcium * 8.9 mg/dL (7.9-10.9); Chloride 97 mmol/L (97-106); Glucose * 248 mg/dL (70-110); Potassium 4.6 mmol/L (3.4-4.6); Sodium 131 mmol/L (132-142); Total Protein 6.8 gm/dL (6.2-8.2)
[2017-10-18 12:40] LABS: Troponin I Less than 0.017 ng/ml (0.00-0.10)
[2017-10-19 00:04] VITALS: BP 108/49
== END 2017-10-18 13:50 | disposition home or self-care (01) ==
LOC: ER 10:40
DX: I16.1 Hypertensive emergency (principal)

== ENCOUNTER 2017-10-20 10:27 | Emergency (ER) | payer MEDICARE ==
[2017-10-20 13:46] VITALS: BP 196/91
== END 2017-10-20 10:42 | disposition home or self-care (01) ==
LOC: ER 10:27
DX: Z13.6 Encounter for screening for cardiovascular disorders

== ENCOUNTER 2017-10-31 23:45 | Emergency (ER) | payer MEDICARE ==
--- NOTE | 2017-11-01 01:11 | ERNOTE ---
Medical Problem HPI - Narrative Date of Service: 11/01/17 - General Chief Complaint: General Assessment Time Seen by Provider: 11/01/17 01:07 Source: patient, family - Immun/Allergies/Home Medications Immunizations: IMMUNIZATION HX Immunizations Up to Date Yes History of Influenza Vaccine No Hx Pneumococcal Vaccination No Allergies/Adverse Reactions: Allergies Penicillins Allergy (Verified 10/31/17 23:54) Hives ibuprofen Adverse Reaction (Verified 10/31/17 23:54) Home Medications: HOME MEDICATIONS Enalapril Maleate [Vasotec] 2.5 mg PO DAILY 07/28/14 [Last Taken Unknown] Insulin Glargine,Hum.rec.anlog [Lantus] 100 unit SQ 07/28/14 [Last Taken Unknown ] Insulin NPH Human Isophane [Humulin N] 15 units SC DAILY 07/28/14 [Last Taken Unknown] Omeprazole [Prilosec] 20 mg PO DAILY 07/28/14 [Last Taken Unknown] Clopidogrel Bisulfate [Plavix] 75 mg PO DAILY 04/08/15 [Last Taken Unknown] Levothyroxine Sodium [Synthroid] 25 mcg PO DAILY 04/08/15 [Last Taken Unknown] Simvastatin [Zocor] 40 mg PO HS 04/08/15 [Last Taken Unknown] Multivitamin [One Daily Essential] 1 each PO DAILY 07/08/16 [Last Taken Unknown] Nitroglycerin [Nitrostat] 0.4 mg SL Q5MIN PRN 03/22/17 [Last Taken Unknown] Ferrous Sulfate [Iron] 325 mg PO DAILY 04/16/17 [Last Taken Unknown] Insulin Regular, Human [Humulin R] unit SC TIDWM 04/16/17 [Last Taken Unknown] [place]-3 Fatty Acids/Fish Oil [Fish Oil 1,000 mg Capsule] 2 each PO 04/16/17 [ Last Taken Unknown] - History of Present History Narrative: 72 year old with a history of HTN, DM, CKD, hypertensive emergency without congestive heart failure comes to the ED due to a blood pressure reading at home of 213/81. Complaints of a frontal headache that has been occurring intermittently for three months, that may be associated with long standing sinusitus. Seen in the ED on 10/18/17 for headache, and a CT of the head was done which did not show any acute pathology. Tylenol does not decrease the headache usually. He finds that when he is busy with activities the headache does not bother him. Minimal complaints of a headache at this time and follow the usual pattern. Blind for 34 years. Two weeks ago the dosage of Enalpril was increased to 2.5 mg po BID and has been complaint with his medications. Since the systolic blood pressure was greater than 180 he took an extra tablet that was 2.5 mg po prior to coming to the ED. To be follow up for a blood pressure check next Saturday and currently is being follow by Nephrology. Date (Duration): 11/01/17 Timing: constant Severity: mild Modifying Factors - (Improves): Present: other - nothing Modifying Factors - (Worsens): Present: other - nothing Review of Systems - Review of Systems Constitutional: Present: no symptoms reported EYE: Present: other - blind ENT: Present: other - sinus headache Respiratory: Present: no symptoms reported Cardiology: Present: no symptoms reported Gastrointestinal/Abdominal: Present: no symptoms reported Genitourinary: Present: no symptoms reported Musculoskeletal: Present: no symptoms reported Skin: Present: no symptoms reported Neurological: Present: See HPI Endocrine: Present: no symptoms reported Hematologic/Lymphatic: Present: no symptoms reported Psych: Present: no symptoms reported - Patient's Past Medical History Patient History - Medical: Diabetes Type 1, GERD, Hypothyroidism, Renal Disease Patient History - Cardiac/Respiratory: Coronary Heart Disease, Hypertension, Hyperlipidemia, Other Patient History - Cancer: No Hx of Cancer Patient History - Surgical Procedures: Coronary Bypass Surgery, Cardiac stent, Other Patient History - Other: None - Family History Mother Family History - Medical: Father Family History - Medical: - Social History Abuse History: No History of abuse Psych History: No pertinent hx Smoking Status: Never smoker Have you smoked in the past 12 months: No Do you dip or chew tobacco: No Alcohol Use: none Drug Use: none - Immunizations Immunizations Up to Date: Yes Hx Pneumococcal Vaccination: No History of Influenza Vaccine: No Physical Exam - Physical Exam General Appearance: Present: no apparent distress Head Exam: Present: normal inspection Eye Exam: Normal inspection: left - deviated to the left Ears, Nose, Throat: Present: normal ENT inspection Neck: Present: normal inspection Respiratory: Present: normal breath sounds, no accessory muscle use Cardiovascular/Chest: Present: regular rate, rhythm Gastrointestinal/Abdominal: Present: nondistended, soft Back Exam: Present: normal inspection Extremity Exam: Present: normal inspection Neurological Exam: Present: alert, oriented, normal mood/affect Skin Exam: Present: normal color ED Progress - Vital Signs Patient's Vital Signs:: I have reviewed the patient's vital signs. Vital Signs: Vital Signs 10/31/17 11/01/17 11/01/17 23:50 00:10 00:26 Temperature 36 C L Pulse Rate 78 70 70 Respiratory 14 14 15 Rate Blood Pressure 213/88 206/78 206/78 O2 Sat by Pulse 99 97 99 Oximetry 11/01/17 11/01/17 00:42 00:51 Temperature Pulse Rate 67 68 Respiratory 14 14 Rate Blood Pressure 182/79 197/86 O2 Sat by Pulse 98 98 Oximetry - Progress/Reassessment Chief Complaint: General Assessment Progress:: Unchanged Progress Note-Subjective: 11/01/17 01:24 It was recommended that the patient increase increase the Enalapril to 7.5 mg po BID. Continue to monitor the blood pressure. He should take 2.5 mg of the Enalapril at home tonight. 11/01/17 01:25 11/01/17 01:35 Departure Clinical Impression: Uncontrolled hypertension - Departure Disposition: Home self-care Condition: Fair Instructions: Hypertension, [id number] Print Language: Macedonian Additional Instructions: Increase the Enalapril dosage to 7.5 mg by mouth twice per day. Continue to monitor the blood pressure 2-3 times per day. If the systolic blood pressure ( the top number is greater than 180) then take an extra pill - 2.5 mg by mouth. Follow up with your provider in 5-7 days. Referrals: Mell Staples PA [Primary Care Provider] -
[2017-11-01 01:24] VITALS: BP 204/98
== END 2017-11-01 01:42 | disposition home or self-care (01) ==
LOC: ER 23:45
DX: I10 Essential (primary) hypertension